=== PATIENT | female | born 1980 ===

== ENCOUNTER → 2024-07-18 14:52 | Outpatient (RCR) | payer OTHER, SELFPAY ==
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
--- NOTE | 2022-11-17 10:12 | HO.TMSDAILY2 ---
TMS Daily Progress Note Daily TMS Progress Note Date of Service: 11/17/22 Week #: 1 Treatment #(12-05): 1 PHQ-9 Pre-Treatment (12-02): 21 PHQ-9 Most Recent (12-02): 21 Reviewed: TMS Tech Note Reviewed Verification: I have reviewed the TMS Beater Worker Helper Note and agree with the contents. The patient remains a candidate to continue TMS treatment per protocol. Assessment and Plan (1) Major depressive disorder, recurrent severe without psychotic features: Status: Acute (2) Chronic post-traumatic stress disorder (PTSD): Status: Acute Plan Initial mapping was completed today patient appears to be tolerating initial treatment Time Spent With Patient Time: Total time managing care of this patient today50 ____ minutes.
--- NOTE | 2022-12-06 09:00 | HO.TMSDAILY2 ---
TMS Daily Progress Note Daily TMS Progress Note Date of Service: 12/06/22 Week #: 3 Treatment #(12-05): 14 PHQ-9 Pre-Treatment (12-02): 21 PHQ-9 Most Recent (12-02): 21 Reviewed: TMS Tech Note Reviewed Verification: I have reviewed the TMS Real Estate Leasing Agent Note and agree with the contents. The patient remains a candidate to continue TMS treatment per protocol. Assessment and Plan Time Spent With Patient Time: Total time managing care of this patient today ____ minutes.
--- NOTE | 2022-12-07 09:00 | P.PNPS_ITS ---
TMS Daily Progress Note Daily TMS Progress Note Date of Service: 12/07/22 Week #: 3 Treatment #(12-05): 15 PHQ-9 Pre-Treatment (12-02): 21 PHQ-9 Most Recent (12-02): 21 Reviewed: TMS Tech Note Reviewed Verification: I have reviewed the TMS Applied Biology Professor Note and agree with the contents. The patient remains a candidate to continue TMS treatment per protocol. Assessment and Plan Time Spent With Patient Time: Total time managing care of this patient today ____ minutes.
--- NOTE | 2022-12-07 23:03 | P.PNPS_ITS ---
TMS Daily Progress Note Daily TMS Progress Note Date of Service: 12/01/22 Week #: 3 Treatment #(12-05): 11 PHQ-9 Pre-Treatment (12-02): 21 PHQ-9 Most Recent (12-02): 21 Reviewed: TMS Tech Note Reviewed Verification: I have reviewed the TMS Television Repairer Note and agree with the contents. The patient remains a candidate to continue TMS treatment per protocol. Assessment and Plan Time Spent With Patient Time: Total time managing care of this patient today ____ minutes.
--- NOTE | 2022-12-07 23:06 | HO.TMSDAILY2 ---
TMS Daily Progress Note Daily TMS Progress Note Date of Service: 12/02/22 Week #: 3 Treatment #(12-05): 12 PHQ-9 Pre-Treatment (12-02): 21 PHQ-9 Most Recent (12-02): 21 Reviewed: TMS Tech Note Reviewed Verification: I have reviewed the TMS Teacher Visually Impaired Note and agree with the contents. The patient remains a candidate to continue TMS treatment per protocol. Assessment and Plan Time Spent With Patient Time: Total time managing care of this patient today ____ minutes.
--- NOTE | 2022-12-07 23:09 | P.PNPS_ITS ---
TMS Daily Progress Note Daily TMS Progress Note Date of Service: 12/07/22 Week #: 3 Treatment #(12-05): 13 PHQ-9 Pre-Treatment (12-02): 21 PHQ-9 Most Recent (12-02): 21 Reviewed: TMS Tech Note Reviewed Verification: I have reviewed the TMS Mail Processing Machine Operator Note and agree with the contents. The patient remains a candidate to continue TMS treatment per protocol. Assessment and Plan Time Spent With Patient Time: Total time managing care of this patient today ____ minutes.
--- NOTE | 2022-12-09 09:22 | HO.TMSDAILY2 ---
TMS Daily Progress Note Daily TMS Progress Note Date of Service: 12/09/22 Week #: 4 Treatment #(12-05): 17 PHQ-9 Pre-Treatment (12-02): 21 PHQ-9 Most Recent (12-02): 21 Reviewed: TMS Tech Note Reviewed Verification: I have reviewed the TMS Library Customer Service Clerk Note and agree with the contents. The patient remains a candidate to continue TMS treatment per protocol. Assessment and Plan Time Spent With Patient Time: Total time managing care of this patient today ____ minutes.
--- NOTE | 2022-12-10 20:21 | HO.TMSDAILY2 ---
TMS Daily Progress Note Daily TMS Progress Note Date of Service: 12/08/22 Week #: 4 Treatment #(12-05): 16 PHQ-9 Pre-Treatment (12-02): 21 PHQ-9 Most Recent (12-02): 21 Reviewed: TMS Tech Note Reviewed Verification: I have reviewed the TMS President And Chief Operating Officer Note and agree with the contents. The patient remains a candidate to continue TMS treatment per protocol. Assessment and Plan Time Spent With Patient Time: Total time managing care of this patient today ____ minutes.
--- NOTE | 2022-12-14 11:34 | HO.TMSDAILY2 ---
TMS Daily Progress Note Daily TMS Progress Note Date of Service: 11/18/22 Week #: 1 Treatment #(12-05): 2 PHQ-9 Pre-Treatment (12-02): 21 PHQ-9 Most Recent (12-02): 21 Reviewed: TMS Tech Note Reviewed Verification: I have reviewed the TMS Middle School History Teacher Note and agree with the contents. The patient remains a candidate to continue TMS treatment per protocol. Assessment and Plan Time Spent With Patient Time: Total time managing care of this patient today ____ minutes.
--- NOTE | 2022-12-14 11:35 | P.PNPS_ITS ---
TMS Daily Progress Note Daily TMS Progress Note Date of Service: 11/21/22 Week #: 1 Treatment #(12-05): 3 PHQ-9 Pre-Treatment (12-02): 21 PHQ-9 Most Recent (12-02): 21 Reviewed: TMS Tech Note Reviewed Verification: I have reviewed the TMS Market Research Associate Note and agree with the contents. The patient remains a candidate to continue TMS treatment per protocol. Assessment and Plan (1) Chronic post-traumatic stress disorder (PTSD): Status: Acute (2) Major depressive disorder, recurrent severe without psychotic features: Status: Acute Plan Continue plan of care no adverse effects noted Time Spent With Patient Time: Total time managing care of this patient today ____ minutes.
--- NOTE | 2022-12-19 14:06 | HO.TMSDAILY2 ---
TMS Daily Progress Note Daily TMS Progress Note Date of Service: 11/22/22 Week #: 1 Treatment #(12-05): 4 PHQ-9 Pre-Treatment (12-02): 21 PHQ-9 Most Recent (12-02): 21 Reviewed: TMS Tech Note Reviewed Verification: I have reviewed the TMS Termite Control Servicer Note and agree with the contents. The patient remains a candidate to continue TMS treatment per protocol. Assessment and Plan Time Spent With Patient Time: Total time managing care of this patient today ____ minutes.
--- NOTE | 2023-01-22 12:15 | HO.TMSDAILY2 ---
TMS Daily Progress Note Daily TMS Progress Note Date of Service: 11/23/22 Week #: 1 Treatment #(12-05): 5 PHQ-9 Pre-Treatment (12-02): 18 PHQ-9 Most Recent (12-02): 20 Reviewed: TMS Tech Note Reviewed Verification: I have reviewed the TMS Paint Sprayer Sandblaster Note and agree with the contents. The patient remains a candidate to continue TMS treatment per protocol. Assessment and Plan Time Spent With Patient Time: Total time managing care of this patient today ____ minutes.
--- NOTE | 2023-01-22 12:54 | P.PNPS_ITS ---
TMS Daily Progress Note Daily TMS Progress Note Date of Service: 11/24/22 Week #: 2 Treatment #(12-05): 6 PHQ-9 Pre-Treatment (12-02): 18 PHQ-9 Most Recent (12-02): 20 Reviewed: TMS Tech Note Reviewed Verification: I have reviewed the TMS Telecommunications Repairer Note and agree with the contents. The patient remains a candidate to continue TMS treatment per protocol. Assessment and Plan (1) Major depressive disorder, recurrent severe without psychotic features: Status: Acute (2) Chronic post-traumatic stress disorder (PTSD): Status: Acute Plan Telecommunications Repairer had difficulty with contact of magnet Time Spent With Patient Time: Total time managing care of this patient today ____ minutes.
--- NOTE | 2023-01-22 12:57 | P.PNPS_ITS ---
TMS Daily Progress Note Daily TMS Progress Note Date of Service: 11/25/22 Week #: 2 Treatment #(12-05): 7 PHQ-9 Pre-Treatment (12-02): 18 PHQ-9 Most Recent (12-02): 20 Reviewed: TMS Tech Note Reviewed Verification: I have reviewed the TMS Service Dismantler Note and agree with the contents. The patient remains a candidate to continue TMS treatment per protocol. Assessment and Plan (1) Major depressive disorder, recurrent severe without psychotic features: Status: Acute (2) Chronic post-traumatic stress disorder (PTSD): Status: Acute Plan No difficulties noted continue treatment plan Time Spent With Patient Time: Total time managing care of this patient today ____ minutes.
--- NOTE | 2023-01-22 12:59 | P.PNPS_ITS ---
TMS Daily Progress Note Daily TMS Progress Note Date of Service: 11/28/22 Week #: 2 Treatment #(12-05): 8 PHQ-9 Pre-Treatment (12-02): 18 PHQ-9 Most Recent (12-02): 23 Reviewed: TMS Tech Note Reviewed Verification: I have reviewed the TMS Operational Risk Analyst Note and agree with the contents. The patient remains a candidate to continue TMS treatment per protocol. Assessment and Plan (1) Major depressive disorder, recurrent severe without psychotic features: Status: Acute (2) Chronic post-traumatic stress disorder (PTSD): Status: Acute Plan Adjustments needed to be made for eye comfort Time Spent With Patient Time: Total time managing care of this patient today ____ minutes.
--- NOTE | 2023-01-22 13:02 | P.PNPS_ITS ---
TMS Daily Progress Note Daily TMS Progress Note Date of Service: 11/29/22 Week #: 2 Treatment #(12-05): 9 PHQ-9 Pre-Treatment (12-02): 18 PHQ-9 Most Recent (12-02): 23 Reviewed: TMS Tech Note Reviewed Verification: I have reviewed the TMS Room Service Associate Note and agree with the contents. The patient remains a candidate to continue TMS treatment per protocol. Assessment and Plan (1) Major depressive disorder, recurrent severe without psychotic features: Status: Acute (2) Chronic post-traumatic stress disorder (PTSD): Status: Acute Plan cont plan of care Time Spent With Patient Time: Total time managing care of this patient today ____ minutes.
--- NOTE | 2023-01-22 13:14 | HO.TMSDAILY2 ---
TMS Daily Progress Note Daily TMS Progress Note Date of Service: 11/30/22 Week #: 2 Treatment #(12-05): 10 PHQ-9 Pre-Treatment (12-02): 18 PHQ-9 Most Recent (12-02): 23 Reviewed: TMS Tech Note Reviewed Verification: I have reviewed the TMS Cloth Winder Machine Operator Note and agree with the contents. The patient remains a candidate to continue TMS treatment per protocol. Assessment and Plan (1) Chronic post-traumatic stress disorder (PTSD): Status: Acute (2) Major depressive disorder, recurrent severe without psychotic features: Status: Acute Plan Patient continues with significant anxiety and depressive symptoms Time Spent With Patient Time: Total time managing care of this patient today ____ minutes.
--- NOTE | 2023-01-22 13:27 | P.PNPS_ITS ---
TMS Daily Progress Note Daily TMS Progress Note Date of Service: 12/01/22 Week #: 3 Treatment #(12-05): 11 PHQ-9 Pre-Treatment (12-02): 18 PHQ-9 Most Recent (12-02): 23 Reviewed: TMS Tech Note Reviewed Verification: I have reviewed the TMS Floorleader Note and agree with the contents. The patient remains a candidate to continue TMS treatment per protocol. Assessment and Plan (1) Chronic post-traumatic stress disorder (PTSD): Status: Acute (2) Major depressive disorder, recurrent severe without psychotic features: Status: Acute Plan Patient continues with significant anxiety and depressive symptoms no significant side effects Time Spent With Patient Time: Total time managing care of this patient today ____ minutes.
--- NOTE | 2023-01-22 13:29 | HO.TMSDAILY2 ---
TMS Daily Progress Note Daily TMS Progress Note Date of Service: 12/02/22 Week #: 3 Treatment #(12-05): 12 PHQ-9 Pre-Treatment (12-02): 18 PHQ-9 Most Recent (12-02): 23 Reviewed: TMS Tech Note Reviewed Verification: I have reviewed the TMS Refractory Repairer Note and agree with the contents. The patient remains a candidate to continue TMS treatment per protocol. Assessment and Plan Time Spent With Patient Time: Total time managing care of this patient today ____ minutes.
--- NOTE | 2023-01-22 13:43 | P.PNPS_ITS ---
TMS Daily Progress Note Daily TMS Progress Note Date of Service: 12/12/22 Week #: 4 Treatment #(12-05): 18 PHQ-9 Pre-Treatment (12-02): 18 PHQ-9 Most Recent (12-02): 17 Reviewed: TMS Tech Note Reviewed Verification: I have reviewed the TMS Insurance And Benefits Clerk Note and agree with the contents. The patient remains a candidate to continue TMS treatment per protocol. Assessment and Plan (1) Major depressive disorder, recurrent severe without psychotic features: Status: Acute Plan Patient feeling somewhat better Time Spent With Patient Time: Total time managing care of this patient today ____ minutes.
--- NOTE | 2023-01-22 13:47 | P.PNPS_ITS ---
TMS Daily Progress Note Daily TMS Progress Note Date of Service: 12/13/22 Week #: 4 Treatment #(12-05): 19 PHQ-9 Pre-Treatment (12-02): 18 PHQ-9 Most Recent (12-02): 17 Reviewed: TMS Tech Note Reviewed Verification: I have reviewed the TMS Chemical Engineering Technician Note and agree with the contents. The patient remains a candidate to continue TMS treatment per protocol. Assessment and Plan (1) Major depressive disorder, recurrent severe without psychotic features: Status: Acute Plan Patient feeling somewhat better no side effects noted continue plan of care Time Spent With Patient Time: Total time managing care of this patient today ____ minutes.
--- NOTE | 2023-01-22 13:50 | HO.TMSDAILY2 ---
TMS Daily Progress Note Daily TMS Progress Note Date of Service: 12/14/22 Week #: 4 Treatment #(12-05): 20 PHQ-9 Pre-Treatment (12-02): 17 PHQ-9 Most Recent (12-02): 17 Reviewed: TMS Mapping/Re-mapping completed Verification: I have reviewed the TMS Network Engineer Administrator Note and agree with the contents. The patient remains a candidate to continue TMS treatment per protocol. Assessment and Plan (1) Chronic post-traumatic stress disorder (PTSD): Status: Acute (2) Major depressive disorder, recurrent severe without psychotic features: Status: Acute Plan TMS Re determination patient has not had adequate response after 20 treatments Re mapping without difficulty Time Spent With Patient Time: Total time managing care of this patient today ____ minutes.
--- NOTE | 2023-01-22 13:55 | HO.TMSDAILY2 ---
TMS Daily Progress Note Daily TMS Progress Note Date of Service: 12/15/22 Week #: 5 Treatment #(12-05): 21 PHQ-9 Pre-Treatment (12-02): 17 PHQ-9 Most Recent (12-02): 17 Reviewed: TMS Tech Note Reviewed Verification: I have reviewed the TMS Radio Station Audio Engineer Note and agree with the contents. The patient remains a candidate to continue TMS treatment per protocol. Assessment and Plan (1) Major depressive disorder, recurrent severe without psychotic features: Status: Acute Plan Seems somewhat more social question Peguero affect Time Spent With Patient Time: Total time managing care of this patient today ____ minutes.
--- NOTE | 2023-01-22 13:57 | HO.TMSDAILY2 ---
TMS Daily Progress Note Daily TMS Progress Note Date of Service: 12/16/22 Week #: 5 Treatment #(12-05): 22 PHQ-9 Pre-Treatment (12-02): 17 PHQ-9 Most Recent (12-02): 17 Reviewed: TMS Tech Note Reviewed Verification: I have reviewed the TMS Software Test Analyst Note and agree with the contents. The patient remains a candidate to continue TMS treatment per protocol. Assessment and Plan (1) Major depressive disorder, recurrent severe without psychotic features: Status: Acute Plan Patient tolerating new settings Time Spent With Patient Time: Total time managing care of this patient today ____ minutes.
--- NOTE | 2023-01-22 13:59 | P.PNPS_ITS ---
TMS Daily Progress Note Daily TMS Progress Note Date of Service: 12/19/22 Week #: 5 Treatment #(12-05): 23 PHQ-9 Pre-Treatment (12-02): 17 PHQ-9 Most Recent (12-02): 15 Reviewed: TMS Tech Note Reviewed Verification: I have reviewed the TMS Ceiling Installer Note and agree with the contents. The patient remains a candidate to continue TMS treatment per protocol. Assessment and Plan Time Spent With Patient Time: Total time managing care of this patient today ____ minutes.
--- NOTE | 2023-01-22 14:00 | P.PNPS_ITS ---
TMS Daily Progress Note Daily TMS Progress Note Date of Service: 12/20/22 Week #: 5 Treatment #(12-05): 24 PHQ-9 Pre-Treatment (12-02): 17 PHQ-9 Most Recent (12-02): 15 Reviewed: TMS Tech Note Reviewed Verification: I have reviewed the TMS Roving Department End Finder Note and agree with the contents. The patient remains a candidate to continue TMS treatment per protocol. Assessment and Plan Time Spent With Patient Time: Total time managing care of this patient today ____ minutes.
--- NOTE | 2023-01-22 14:02 | P.PNPS_ITS ---
TMS Daily Progress Note Daily TMS Progress Note Date of Service: 12/21/22 Week #: 5 Treatment #(12-05): 25 PHQ-9 Pre-Treatment (12-02): 17 PHQ-9 Most Recent (12-02): 15 Reviewed: TMS Tech Note Reviewed Verification: I have reviewed the TMS Police District Switchboard Operator Note and agree with the contents. The patient remains a candidate to continue TMS treatment per protocol. Assessment and Plan Time Spent With Patient Time: Total time managing care of this patient today ____ minutes.
--- NOTE | 2023-01-22 14:03 | P.PNPS_ITS ---
TMS Daily Progress Note Daily TMS Progress Note Date of Service: 12/22/22 Week #: 6 Treatment #(12-05): 26 PHQ-9 Pre-Treatment (12-02): 17 PHQ-9 Most Recent (12-02): 15 Reviewed: TMS Tech Note Reviewed Verification: I have reviewed the TMS Primary Care Nurse Note and agree with the contents. The patient remains a candidate to continue TMS treatment per protocol. Assessment and Plan (1) Major depressive disorder, recurrent severe without psychotic features: Status: Acute Plan Tolerating treatment no significant change to this point Time Spent With Patient Time: Total time managing care of this patient today ____ minutes.
--- NOTE | 2023-01-22 14:05 | P.PNPS_ITS ---
TMS Daily Progress Note Daily TMS Progress Note Date of Service: 12/23/22 Week #: 6 Treatment #(12-05): 27 PHQ-9 Pre-Treatment (12-02): 17 PHQ-9 Most Recent (12-02): 15 Reviewed: TMS Tech Note Reviewed Verification: I have reviewed the TMS Linux Network Administrator Note and agree with the contents. The patient remains a candidate to continue TMS treatment per protocol. Assessment and Plan (1) Major depressive disorder, recurrent severe without psychotic features: Status: Acute Plan Tolerating treatment no significant change to this point Time Spent With Patient Time: Total time managing care of this patient today ____ minutes.
--- NOTE | 2023-01-22 14:06 | HO.TMSDAILY2 ---
TMS Daily Progress Note Daily TMS Progress Note Date of Service: 12/27/22 Week #: 6 Treatment #(12-05): 28 PHQ-9 Pre-Treatment (12-02): 17 PHQ-9 Most Recent (12-02): 14 Reviewed: TMS Tech Note Reviewed Verification: I have reviewed the TMS Human Resources Hr Generalist Note and agree with the contents. The patient remains a candidate to continue TMS treatment per protocol. Assessment and Plan Time Spent With Patient Time: Total time managing care of this patient today ____ minutes.
--- NOTE | 2023-01-22 14:18 | HO.TMSDAILY2 ---
TMS Daily Progress Note Daily TMS Progress Note Date of Service: 12/28/22 Week #: 6 Treatment #(12-05): 29 PHQ-9 Pre-Treatment (12-02): 18 PHQ-9 Most Recent (12-02): 14 Reviewed: TMS Tech Note Reviewed Verification: I have reviewed the TMS [employer] Rede[employer] Specialist Note and agree with the contents. The patient remains a candidate to continue TMS treatment per protocol. Assessment and Plan (1) Major depressive disorder, recurrent severe without psychotic features: Status: Acute Plan Continues to tolerate treatment no remarkable change to this point no significant side effects Time Spent With Patient Time: Total time managing care of this patient today ____ minutes.
--- NOTE | 2023-01-22 14:20 | P.PNPS_ITS ---
TMS Daily Progress Note Daily TMS Progress Note Date of Service: 12/29/22 Week #: 6 Treatment #(12-05): 30 PHQ-9 Pre-Treatment (12-02): 18 PHQ-9 Most Recent (12-02): 14 Reviewed: TMS Tech Note Reviewed Verification: I have reviewed the TMS Aviation Electronic Warfare Operator Note and agree with the contents. The patient remains a candidate to continue TMS treatment per protocol. Patient states she is feeling better Assessment and Plan Time Spent With Patient Time: Total time managing care of this patient today ____ minutes.
--- NOTE | 2023-01-22 14:23 | HO.TMSDAILY2 ---
TMS Daily Progress Note Daily TMS Progress Note Date of Service: 01/02/23 Week #: 7 Treatment #(12-05): 31 PHQ-9 Pre-Treatment (12-02): 18 PHQ-9 Most Recent (12-02): 10 Reviewed: TMS Tech Note Reviewed Verification: I have reviewed the TMS Civil Engineering Project Manager Note and agree with the contents. The patient remains a candidate to continue TMS treatment per protocol. Assessment and Plan Time Spent With Patient Time: Total time managing care of this patient today ____ minutes.
--- NOTE | 2023-01-22 14:24 | HO.TMSDAILY2 ---
TMS Daily Progress Note Daily TMS Progress Note Date of Service: 01/04/23 Week #: 7 Treatment #(12-05): 32 PHQ-9 Pre-Treatment (12-02): 18 PHQ-9 Most Recent (12-02): 10 Reviewed: TMS Tech Note Reviewed Verification: I have reviewed the TMS Polysomnography Technician Note and agree with the contents. The patient remains a candidate to continue TMS treatment per protocol. Assessment and Plan (1) Major depressive disorder, recurrent severe without psychotic features: Status: Acute Plan Patient shows some improvement Time Spent With Patient Time: Total time managing care of this patient today ____ minutes.
--- NOTE | 2023-01-22 14:26 | HO.TMSDAILY2 ---
TMS Daily Progress Note Daily TMS Progress Note Date of Service: 01/06/23 Week #: 7 Treatment #(12-05): 33 PHQ-9 Pre-Treatment (12-02): 18 PHQ-9 Most Recent (12-02): 10 Reviewed: TMS Tech Note Reviewed Verification: I have reviewed the TMS Train Station Server Note and agree with the contents. The patient remains a candidate to continue TMS treatment per protocol. Assessment and Plan (1) Major depressive disorder, recurrent severe without psychotic features: Status: Acute Plan Patient does seem to be getting benefit Time Spent With Patient Time: Total time managing care of this patient today ____ minutes.
--- NOTE | 2023-01-22 14:27 | HO.TMSDAILY2 ---
TMS Daily Progress Note Daily TMS Progress Note Date of Service: 01/09/23 Week #: 8 Treatment #(12-05): 34 PHQ-9 Pre-Treatment (12-02): 18 PHQ-9 Most Recent (12-02): 10 Reviewed: TMS Tech Note Reviewed Verification: I have reviewed the TMS Academic Dean Note and agree with the contents. The patient remains a candidate to continue TMS treatment per protocol. Assessment and Plan Time Spent With Patient Time: Total time managing care of this patient today ____ minutes.
--- NOTE | 2023-01-22 14:28 | P.PNPS_ITS ---
TMS Daily Progress Note Daily TMS Progress Note Date of Service: 01/11/23 Week #: 8 Treatment #(12-05): 35 PHQ-9 Pre-Treatment (12-02): 18 PHQ-9 Most Recent (12-02): 10 Reviewed: TMS Tech Note Reviewed Verification: I have reviewed the TMS [employer] Wireman Note and agree with the contents. The patient remains a candidate to continue TMS treatment per protocol. Assessment and Plan (1) Major depressive disorder, recurrent severe without psychotic features: Status: Acute Plan Patient reports significant change in mood feels treatments have been quite helpful Time Spent With Patient Time: Total time managing care of this patient today ____ minutes.
--- NOTE | 2023-01-22 14:30 | P.PNPS_ITS ---
TMS Daily Progress Note Daily TMS Progress Note Date of Service: 01/13/23 Week #: 8 Treatment #(12-05): 36 PHQ-9 Pre-Treatment (12-02): PHQ-9 initially 21 at time of consultation PHQ-9 Most Recent (12-02): 10 Q-LES-Q-SF Most Recent: 46 Reviewed: TMS Tech Note Reviewed Verification: I have reviewed the TMS Chemical Production Engineer Note and agree with the contents. The patient remains a candidate to continue TMS treatment per protocol. Patient completed treatment significant improvement in quality of life and symptoms noted by patient no adverse effects noted when remembering was completed Assessment and Plan (1) Major depressive disorder, recurrent severe without psychotic features: Status: Acute Plan Patient initial PHQ-9 at time consultation 21 discharge PHQ-9 10 significant improvement noted no adverse effects Time Spent With Patient Time: Total time managing care of this patient today ____ minutes.
== END | disposition home or self-care (01) ==
LOC: HO.PTMS 11-14 08:35
PROVIDERS: Visit Provider Psychiatry & Neurology Psychiatry
DX: F33.2 Major depressive disorder, recurrent severe without psychotic features (principal); F43.12 Post-traumatic stress disorder, chronic
CPT/HCPCS: 90867; 90868; 90869